=== PATIENT | male | born 1970 | race African-American/Black ===

== ENCOUNTER 2016-12-05 11:52 | Emergency (ER) | payer SELFPAY ==
[2016-12-05 12:05] VITALS: BP 139/76
[2016-12-05] MEDS ORDERED: Ondansetron TAB* 4 MG PO ONE (12:23)
[2016-12-05] MEDS ORDERED: Ondansetron ODT TAB* 4 MG PO ONE (12:27)
--- NOTE | 2016-12-05 12:39 | UC ---
UC General HPI - HPI Summary HPI Summary: 46 yo male presents to the urgent care c/o nausea, vomiting and diarrhea after he ate a hamburger with a pizza last night. Patient reports he has had 5 episodes of vomiting and 4X of watery diarrhea. This morning he developed headache with sensitivity to light, body aches, specially when he is lying down and mild fever. He has taking ibuprofen /tylenol which has improved symptoms. Last episode of vomiting was at 10:30pm. Patient denies SOB, chest pain, blood in the stool or emesis, travelling outside the country, sick contacts. - History of Current Complaint Chief Complaint: UCGeneralIllness Stated Complaint: BODY ACHES,VOMITTING,ONEIL Time Seen by Provider: 12/05/16 11:55 Hx Obtained From: Patient Onset/Duration: Sudden Onset - vomiting and diarrhea, Lasting Hours, Still Present Timing: Intermittent Episodes Lasting: Onset Severity: Moderate Current Severity: Moderate Pain Intensity: 4 Pain Location at: upper back when laying down due to vomiting Associated Signs & Symptoms: Positive: Abdominal Pain - mild epigastric, Diarrhea, Fever - mild, Headache - with sensitiviy to light, Nausea, Vomiting. Negative: Dizziness, Hematemesis - Allergy/Home Medications Allergies/Adverse Reactions: Allergies Allergy/AdvReac Type Severity Reaction Status Date / Time No Known Allergies Allergy Verified 12/05/16 11:57 PMH/Surg Hx/FS Hx/Imm Hx Neurological History: Migraine - Surgical History Surgical History: None - Family History Known Family History: Positive: Cardiac Disease, Diabetes, Other - liver cancer - Social History Occupation: Employed Full-time Lives: With Family Alcohol Use: None Substance Use Type: None Smoking Status (MU): Heavy Every Day Tobacco Smoker Type: Cigarettes Amount Used/How Often: 1/2 ppd - Immunization History Most Recent Influenza Vaccination: 2016 Most Recent Tetanus Shot: UTD Most Recent Pneumonia Vaccination: N/A Review of Systems Constitutional: Fever - mild Skin: Negative Eyes: Negative, Photophobia - due to migraine headache ENT: Negative Respiratory: Negative Cardiovascular: Negative Gastrointestinal: Abdominal Pain - eoigastric, Vomiting - 6 episodes bile like, Diarrhea - watery Genitourinary: Negative Motor: Negative Neurovascular: Negative Musculoskeletal: Negative Neurological: Headache Psychological: Negative All Other Systems Reviewed And Are Negative: Yes Physical Exam Triage Information Reviewed: Yes Appearance: Well-Appearing, No Pain Distress, Well-Nourished, Thin Vital Signs: Initial Vital Signs Temp 98.6 F 12/05/16 11:58 Pulse 69 12/05/16 11:58 Resp 18 12/05/16 11:58 BP 139/76 12/05/16 11:58 Pulse Ox 99 12/05/16 11:58 Vital Signs Reviewed: Yes Eye Exam: Normal Eyes: Positive: Conjunctiva Clear ENT Exam: Normal ENT: Positive: Normal ENT inspection, Hearing grossly normal, Pharynx normal, TMs normal. Negative: Nasal congestion, Nasal drainage Neck exam: Normal Neck: Positive: Supple, Nontender, No Lymphadenopathy Respiratory Exam: Normal Respiratory: Positive: Chest non-tender, Lungs clear, Normal breath sounds Cardiovascular Exam: Normal Cardiovascular: Positive: RRR, No Murmur, Pulses Normal Abdominal Exam: Normal Abdomen Description: Positive: No Organomegaly, Soft, Other: - mild epigatric pain on deep palpation,. Negative: CVA Tenderness (R), CVA Tenderness (L) Bowel Sounds: Positive: Present Musculoskeletal Exam: Normal Neurological Exam: Normal Psychological Exam: Normal Skin Exam: Normal Course/Dx - Course Course Of Treatment: Nausea, vomiting and diarrhea: Hx obtained, PE performed: Positive: No Organomegaly, Soft, Other: - mild epigatric pain on deep palpation, . Negative: CVA Tenderness (R), CVA Tenderness (L). Pt with Hx of Migraine headache and sensitivity to light. Patient given Zofran 4mg SL for vomitng, Pt tolerated well medication and left clinic ambulating. Medications sent to pharmacy. Pt instructed to increase hydration and eat soft meals and take medications to alleviate symptoms. Patient understood and agreed. - Differential Dx - Multi-Symptom Provider Diagnoses: Nausea, vomiting, diarrhea, Migraine Headache. Discharge - Discharge Plan Condition: Stable Disposition: HOME Prescriptions: Ibuprofen TAB* [Motrin TAB* 600 MG] 600 mg PO Q6H PRN #20 tab PRN Reason: Headache Ondansetron ODT TAB* [Zofran 4 MG Odt TAB*] 8 mg PO Q8H PRN #9 tab.odt PRN Reason: Vomiting Patient Education Materials: Acute Nausea and Vomiting (ED) Forms: *Work Release Referrals: [facility] [Outside] No Primary Care Phys,NOPCP [Primary Care Provider] - Additional Instructions: Please increase fluid intake to avoid dehydration either gatorade or Pedialyte OTC. Eat soft meals and rest. Take medications as directed to alleviate symptoms. If symptoms worsen please return to the urgent care or call Physicial referal to make and appt with a PCP for further evaluation and treatment
== END 2016-12-05 12:52 | disposition home or self-care (01) ==
LOC: UCCORT 11:52
DX: R11.2 Nausea with vomiting, unspecified (principal); R19.7 Diarrhea, unspecified; G43.909 Migraine, unspecified, not intractable, without status migrainosus; R10.13 Epigastric pain; F17.210 Nicotine dependence, cigarettes, uncomplicated
CPT/HCPCS: 99202; A9270-GY; G0463

== ENCOUNTER 2018-12-02 07:30 | Observation (INO) | payer OTHER ==
[2018-12-06] MEDS ORDERED: Buffered Lidocaine 1% SYRIN* 1 ML/SYRINGE INTRADERM ONE (11:31)
[2018-12-07] MEDS ORDERED: Sodium Citrate/Citric Acid* 15 ML UDC PO ONE (06:00)
[2018-12-07] MEDS ORDERED: Lactated Ringers 1000 ML Bag* 1,000 ML IV SCH ×2 (06:00→12:00)
--- OUTSIDE RECORDS SUMMARY | 2018-12-07 06:12 | XMS REPORT | Continuity of Care Document ---
:1970 External Reference #:[id number] Author Name Pepper Hsu Care Team Providers Name Role Phone Ne Kearns PA Care Team Information Geospatial Imagery Intelligence Analyst Unavailable Ne Kearns PA Primary Care Physician Unavailable Payers Date Identification Numbers Payment Provider Subscriber Effective: 2018 Policy Number: [id number] [employer] Suresh Gonzalez PayID: [id number] [address] [place] [address] Problems Active Problems Provider Date Tobacco user Chinmay Davenport M.D., Onset: 11/17/2018 [facility] Preoperative cardiovascular Chinmay Davenport M.D., Onset: 11/17/2018 examination FAC Family History Date Family Member(s) Observation Comments : (age 46 Years) Father due to CAD Mother Cancer Mother Diabetes Mother enlarged heart Social History Type Date Description Comments Sex Unknown Lives With Significant Other Diet Patient follows no dietary restrictions 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 Independent with all ADL's Tobacco Use Start: Unknown Currently smokes 1-5 Cigarettes Daily Smoking Status Reviewed: 11/17/18 Currently smokes 1-5 Cigarettes Daily ETOH Use Occasionally consumes alcohol Allergies, Adverse Reactions, Alerts Description No Known Drug Allergies Medications Active Medications SIG Qnty Indications Ordering Provider Date Gabapentin take one tablet Unknown 600mg Tablets by mouth three times a day prn History Medications No Active Medications Unknown 03/25/2018 - 11/17/2018 Vital Signs Date Vital Result Comment 11/17/2018 2:02pm BP Systolic Sitting Left Arm 148 mmHg BP Diastolic Sitting Left Arm 90 mmHg Heart Rate 55 /min Respiratory Rate 18 /min Weight 191.00 lb Results Test Date Facility Test Result H/L Range Note Monocytes/leuk NFr N2N/CCD Import Monocytes/leuk NFr 7.1 0.0- 10.0 Bld Auto 018 Bld Auto Neutrophils # Bld N2N/CCD Import Neutrophils # Bld 2.66 1.8-7.0 Auto 018 Auto Neutrophils/leuk N2N/CCD Import Neutrophils/leuk 38.6 33.0-73. NFr Bld Auto 018 NFr Bld Auto 0 Potassium N2N/CCD Import Potassium 3.9 3.5-5.1 SerPl-sCnc 018 SerPl-sCnc RDW RBC Auto N2N/CCD Import RDW RBC Auto 43.3 36-51 018 RDW RBC Auto-Rto N2N/CCD Import RDW RBC Auto-Rto 12.8 11.6-15. 018 8 Serum carbon N2N/CCD Import Serum carbon 26 21-32 dioxide measurement 018 dioxide measurement Serum or plasma N2N/CCD Import Serum or plasma 8.3 Low 8.5-10.1 calcium measurement 018 calcium measurement (mass/volume) (mass/volume) Serum or plasma N2N/CCD Import Serum or plasma 239 39-308 creatine kinase 018 creatine kinase measurement (enzym measurement (enzymatic activity/volume) Serum or plasma N2N/CCD Import Serum or plasma 0.8 0.6-1.3 creatinine 018 creatinine measurement measurement (mass/volum (mass/volume) Serum or plasma N2N/CCD Import Serum or plasma 115 High 74-106 glucose measurement 018 glucose measurement (mass/volume) (mass/volume) Serum or plasma N2N/CCD Import Serum or plasma 1.8 1.8-2.4 magnesium 018 magnesium measurement measurement (mass/volume (mass/volume) Serum or plasma N2N/CCD Import Serum or plasma 8 7-18 urea nitrogen 018 urea nitrogen measurement measurement (mass/vo (mass/volume) Serum or plasma N2N/CCD Import Serum or plasma 10.0 urea 018 urea nitrogen/creatinine nitrogen/creatinine mass rati mass ratio Serum sodium N2N/CCD Import Serum sodium 141 136-145 measurement 018 measurement Automated blood N2N/CCD Import Automated blood 0.01 0.0-0.1 basophil count 018 basophil count (count/volume) (count/volume) Anion Gap N2N/CCD Import Anion Gap 8 8-16 SerPl-sCnc 018 SerPl-sCnc * Miscellaneous N2N/CCD Import * Miscellaneous Test(s) studies (set) 018 studies (set) added Automated blood N2N/CCD Import Automated blood 0.28 0.0-0.5 eosinophil count 018 eosinophil count Automated blood N2N/CCD Import Automated blood 41.4 # 38.0-48. hematocrit (volume 018 hematocrit (volume 0 fraction) fraction) Automated blood N2N/CCD Import Automated blood 3.46 1.0-4.0 lymphocyte count 018 lymphocyte count (number/volume) (number/volume) Automated blood N2N/CCD Import Automated blood 160 155-360 platelet count 018 platelet count Automated blood N2N/CCD Import Automated blood 10.2 6.6-10.6 platelet mean 018 platelet mean volume measurement volume measurement Automated N2N/CCD Import Automated 33.2 High 27.0-33. erythrocyte mean 018 erythrocyte mean 0 corpuscular corpuscular hemoglobin hemoglobin (mass per erythrocyte) Lymphocytes/leuk N2N/CCD Import Lymphocytes/leuk 50.1 High 20.0- 42. NFr Bld Auto 018 NFr Bld Auto 0 Eosinophil/leuk NFr N2N/CCD Import Eosinophil/leuk NFr 4.1 0.0- 6.6 Bld Auto 018 Bld Auto Chloride SerPl-sCnc N2N/CCD Import Chloride SerPl-sCnc 107 98- 107 018 Blood monocytes N2N/CCD Import Blood monocytes 0.49 0.0-0.8 automated count 018 automated count (number/volume) (number/volume) Blood leukocytes N2N/CCD Import Blood leukocytes 6.9 3.4-10.5 automated count 018 automated count (number/volume) (number/volume) Blood hemoglobin N2N/CCD Import Blood hemoglobin 14.5 12.8-17. measurement 018 measurement 0 (mass/volume) (mass/volume) Blood erythrocytes N2N/CCD Import Blood erythrocytes 4.37 4.20- 5.8 automated count 018 automated count 0 (number/volume) (number/volume) Basophils/leuk NFr N2N/CCD Import Basophils/leuk NFr 0.1 0.0- 1.1 Bld Auto 018 Bld Auto Automated N2N/CCD Import Automated 94.7 80.0-96. erythrocyte mean 018 erythrocyte mean 0 corpuscular volume corpuscular volume Automated N2N/CCD Import Automated 35.0 31.7-36. erythrocyte mean 018 erythrocyte mean 0 corpuscular corpuscular hemoglobin hemoglobin concentration measurement (mass/volume) Serum or plasma N2N/CCD Import Serum or plasma 0.9 0.2-1.0 total bilirubin 018 total bilirubin measurement (mass/ measurement (mass/volume) Serum or plasma N2N/CCD Import Serum or plasma 8.4 High 6.4-8.2 protein measurement 018 protein measurement (mass/volume) (mass/volume) Serum or plasma N2N/CCD Import Serum or plasma 48 High 15-37 aspartate 018 aspartate aminotransferase aminotransferase measure measurement (enzymatic activity/volume) Serum or plasma N2N/CCD Import Serum or plasma 87 45-117 alkaline 018 alkaline phosphatase phosphatase measurement ( measurement (enzymatic activity/volume) Serum or plasma N2N/CCD Import Serum or plasma 4.1 3.4-5.0 albumin measurement 018 albumin measurement (mass/volume) (mass/volume) Globulin Ser N2N/CCD Import Globulin Ser 4.3 1.9-4.3 Calc-mCnc 018 Calc-mCnc Albumin/Glob SerPl N2N/CCD Import Albumin/Glob SerPl 1.0 018 Alt SerPl-cCnc N2N/CCD Import Alt SerPl-cCnc 43 12-78 018 Urine opiates N2N/CCD Import Urine opiates Negative detection by 018 detection by screening method screening method Urine methadone N2N/CCD Import Urine methadone Negative screen 018 screen Urine drug screen N2N/CCD Import Urine drug screen * comment 018 comment interpretation interpretation Urine cannabinoids N2N/CCD Import Urine cannabinoids Positive High detection by 018 detection by screening method screening method Urine N2N/CCD Import Urine Negative benzoylecgonine 018 benzoylecgonine detection by detection by screening metho screening method Urine N2N/CCD Import Urine Negative benzodiazepines 018 benzodiazepines measurement by measurement by screening met screening method (mass/volume) Urine amphetamines N2N/CCD Import Urine amphetamines Negative detection by 018 detection by screening method screening method Screening urine N2N/CCD Import Screening urine Negative barbiturate 018 barbiturate detection detection Procedures Date Code Description Status 11/17/2018 56823 EKG-Tracing And Report Completed 05/07/2018 91247 [facility] [employer] Performance Continuous Completed Electrocardio Mon Encounters Type Date Location Provider Dx Diagnosis Office Visit 11/17/2018 Cardiology Office [facility] Z01.810 Encounter for 2:00p Chinmay Parker M.D., preprocedural [facility] cardiovascular examination F17.210 Nicotine dependence, cigarettes, uncomplicated Plan of Treatment 11/17/2018 - Chinmay Davenport M.D., FACCZ01.810 Encounter for preprocedural cardiovascular examinationComments:The patient is cleared for surgery without further study.F17.210 Nicotine dependence, cigarettes, uncomplicatedComments: Counseled patient on smoking cessation for more than 3 min.AllFollow up:Follow up with us on a PRN basis.
--- OUTSIDE RECORDS SUMMARY | 2018-12-07 06:13 | XMS REPORT | Continuity of Care Document ---
:1970 External Reference #:[id number] Author Name Pepper Hsu Care Team Providers Name Role Phone Ne Kearns PA Care Team Information Cutter Operator Tile Unavailable Ne Kearns PA Primary Care Physician Unavailable Payers Date Identification Numbers Payment Provider Subscriber Effective: 2018 Policy Number: [id number] [employer] Suresh Gonzalez PayID: [id number] [address] [place] [address] Problems Active Problems Provider Date Tobacco user Chinmay Davenport M.D., Onset: 11/17/2018 [facility] Preoperative cardiovascular Chinmay Davenport M.D., Onset: 11/17/2018 examination FAC Family History Date Family Member(s) Observation Comments : (age 46 Years) Father due to CAD Mother Cancer Mother Diabetes Mother enlarged heart Social History Type Date Description Comments Sex Unknown Lives With Significant Other Diet Patient follows no dietary restrictions 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 NFr Bld Auto 018 NFr Bld Auto 0 Monocytes/leuk NFr N2N/CCD Import Monocytes/leuk NFr 7.1 [...] Serum sodium 141 136-145 measurement 018 measurement Anion Gap N2N/CCD Import Anion Gap 8 8-16 SerPl-sCnc 018 SerPl-sCnc * Miscellaneous N2N/CCD Import * Miscellaneous Test(s) studies (set) 018 studies (set) added Automated blood N2N/CCD Import Automated blood 0.01 0.0-0.1 basophil count 018 basophil count (count/volume) (count/volume) Automated blood N2N/CCD Import Automated blood 0.28 [...] corpuscular corpuscular hemoglobin hemoglobin (mass per erythrocyte) Eosinophil/leuk NFr N2N/CCD Import Eosinophil/leuk NFr 4.1 [...] detection Procedures Date Code Description Status 11/17/2018 66733 EKG-Tracing And Report Completed 05/07/2018 78890 [facility] Performance Continuous Completed Electrocardio Mon Encounters Type Date Location Provider Dx Diagnosis Office Visit 11/17/2018 Cardiology Office [facility] Z01.810 Encounter for 2:00p Chinmay Parker M.D., preprocedural [facility] cardiovascular examination F17.210 Nicotine dependence, cigarettes, uncomplicated Plan of Treatment 11/17/2018 - Chinmay Davenport M.D., FACCZ01.810 Encounter for preprocedural cardiovascular examinationComments:The patient is cleared for surgery without further study.F17.210 Nicotine dependence, cigarettes, uncomplicatedComments: Counseled patient on smoking cessation for more than 3 min.AllFollow up:Follow up with us on a PRN basis.
--- OUTSIDE RECORDS SUMMARY | 2018-12-07 06:13 | XMS REPORT | Continuity of Care Document ---
:1970 External Reference #:[id number] Author Name Chinmay Davenport M.D., [facility] Address [address] [place] [address] Care Team Providers Name Role Phone Ne Kearns PA Care Team Information Parole Supervisor Unavailable Ne Kearns PA Primary Care Physician Unavailable Payers Date Identification Numbers Payment Provider Subscriber Effective: 2018 Policy Number: [id number] [employer] Suresh Gonzalez PayID: [id number] [address] [place] [address] Problems Active Problems Provider Date Tobacco user Chinmay Davenport M.D., Onset: 11/17/2018 [facility] Preoperative cardiovascular Chinmay Davenport M.D., Onset: 11/17/2018 examination [facility] Family History Date Family Member(s) Observation Comments : (age 46 Years) Father due to CAD Mother Cancer Mother Diabetes Mother enlarged heart Social History Type Date Description Comments Sex Unknown Lives With Significant Other Diet Patient follows no dietary restrictions 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 with all ADL's Tobacco Use [...] Serum sodium 141 136-145 measurement 018 measurement * Miscellaneous N2N/CCD Import * Miscellaneous Test(s) studies (set) 018 studies (set) added Anion Gap N2N/CCD Import Anion Gap 8 8-16 SerPl-sCnc 018 SerPl-sCnc Automated blood N2N/CCD Import Automated blood 0.01 [...] detection Procedures Date Code Description Status 11/17/2018 58276 EKG-Tracing And Report Completed 05/07/2018 32781 [facility] [employer] Performance Continuous Completed Electrocardio Mon Encounters Type Date Location Provider Dx Diagnosis Office Visit 11/17/2018 Cardiology Office [facility] Z01.810 Encounter for 2:00p Chinmay Parker M.D., preprocedural [facility] cardiovascular examination F17.210 Nicotine dependence, cigarettes, uncomplicated Plan of Treatment 11/17/2018 - Chinmay Davenport M.D., FACCZ01.810 Encounter for preprocedural cardiovascular examinationComments:The patient is cleared for surgery without further study.F17.210 Nicotine dependence, cigarettes, uncomplicatedComments: Counseled patient on smoking cessation for more than 3 min.AllFollow up:Follow up with us on a PRN basis.
[2018-12-07] MEDS ORDERED: Sodium Citrate/Citric Acid* 15 ML UDC ONE (06:38)
[2018-12-07] MEDS ORDERED: ceFAZolin 2 GM PREMIX in ORs 2 GM/50 ML BAG ONE ×2 (06:38→11:18)
[2018-12-07] MEDS ORDERED: Buffered Lidocaine 1% SYRIN* 1 ML/SYRINGE INTRADERM ONE (06:38)
[2018-12-07] MEDS ORDERED: Thrombin 5,000 UNITS* 1 APPLIC KIT - topical use - TOPICAL ONE (07:05)
[2018-12-07] MEDS ORDERED: Lidocaine 1% MPF wEPI 200,000* 30 ML SDV ONE (07:05)
[2018-12-07] MEDS ORDERED: Bacitracin INJECTION* 50,000 UNITS ONE (07:05)
[2018-12-07] MEDS ORDERED: fentaNYL* 50 MCG/ML 5 ML VIAL (250 MCG VIAL) ONE (07:13)
[2018-12-07] MEDS ORDERED: Succinylcholine* 20 MG/ML 10 ML VIAL ONE (07:14)
[2018-12-07] MEDS ORDERED: Propofol* 10 MG/ML 20 ML BTL ONE (07:14)
[2018-12-07] MEDS ORDERED: Lidocaine 2% PF * 5 ML VIAL ONE (07:14)
[2018-12-07] MEDS ORDERED: Midazolam* 1 MG/ML 2 ML VIAL (2 MG) ONE (07:33)
[2018-12-07] MEDS ORDERED: Remifentanil* 2 MG VIAL ONE (07:56)
[2018-12-07] MEDS ORDERED: Dexamethasone IV* 4 MG/ML 1 ML (4 MG) ONE (08:32)
[2018-12-07] MEDS ORDERED: Propofol* 0 MG/0 ML BTL ONE (08:37)
[2018-12-07] MEDS ORDERED: Desflurane* 240 ML INH ONE (08:49)
[2018-12-07] MEDS ORDERED: Propofol* 500 MG/50 ML BTL ONE ×2 (08:49→09:25)
[2018-12-07] MEDS ORDERED: Rocuronium* 10 MG/ML VIAL ONE (09:10)
[2018-12-07] MEDS ORDERED: Propofol* 0 ML ONE (09:25)
[2018-12-07] MEDS ORDERED: Propofol* 200 ML ONE (10:42)
[2018-12-07] MEDS ORDERED: Neostigmine Methylsulfate* 3 MG/3 ML SYRINGE ONE (11:15)
[2018-12-07] MEDS ORDERED: Magnesium Hydroxide LIQ* 30 ML UDC PO PRN (11:54)
[2018-12-07] MEDS ORDERED: Ondansetron INJ* 2 MG/ML VIAL IV PRN (11:54)
[2018-12-07] MEDS ORDERED: Zolpidem TAB* 10 MG PO PRN (11:54)
[2018-12-07] MEDS ORDERED: Naloxone* 0.4 MG/ML 1 ML VIAL IV PRN (12:04)
[2018-12-07] MEDS: fentaNYL* 50 MCG/ML 2 ML VIAL (100 MCG VIAL) IV PRN ×4 (12:21→12:28)
[2018-12-07] MEDS ORDERED: fentaNYL* 50 MCG/ML 2 ML VIAL (100 MCG VIAL) ONE ×2 (12:21→13:05)
[2018-12-07] MEDS ORDERED: oxyCODONE/Acetamin 5/325 MG* TAB ONE (13:05)
--- NOTE | 2018-12-07 13:45 | OP ---
DATE OF OPERATION: 12/07/18 - ROOM #347 DATE OF : 72 SURGEON: Garland Quinn MD [employer] SEALER AND TESTER: Preet Mcneill, Surgical PA. The case was done with the assistance of the PA because of the complexity of the case. ANESTHESIA: General. PRE-OP DIAGNOSIS: Degenerative disk disease. POST-OP DIAGNOSIS: Degenerative disk disease. OPERATIVE PROCEDURE: The patient underwent anterior cervical diskectomy and fusion C5-C6 and C6-C7 with PEEK interbody cage, DBX local harvested autologous bone graft and plate with intraoperative monitoring. ESTIMATED BLOOD LOSS: 200 cc. COMPLICATIONS: None. SUMMARY: The patient is a very pleasant 48-year-old gentleman with complaints of neck pain radiating to the right upper extremity. The patient had significant weakness and loss of sensation in the right upper extremity. MRI revealed degenerative disk disease with multilevel right neuroforaminal stenosis and diagnosis of radiculopathy was confirmed with EMG. After failing all conservative modalities, he was offered the option of surgical intervention. After explaining the expectations, limitations, and possible complications to the patient and his significant other with complications including but not limited to bleeding, infection, risk of injury to adjacent structures, paralysis, , need for additional procedure, anesthesia risk, stroke, blindness, cancer, instability, hardware failure, adjacent level disease , pseudoarthrosis, spinal fluid leak, Rebekah syndrome, need for tracheostomy or gastrostomy, anesthesia risk, paralysis, progressive myelopathy, inability to improve, need for prolonged hospitalization, prolonged ICU stay, and anesthesia risk; the patient was agreeable to proceed with surgery and informed consent was obtained. The patient understood that his condition may not improve and in fact may get worse after surgery and that he may need to have additional procedure in the future. He also understood that operative plan may be modified according to intraoperative findings and conditions and he understood that the case may be abandoned or done in more than 1 stage. DESCRIPTION OF PROCEDURE: The patient was brought to the operating room, was placed under general anesthesia by the anesthesia team. He was carefully positioned supine on the Evin table and all bony prominences were meticulously padded. His skin was prepped and draped in the standard fashion. After appropriate surgical pause and patient identification, a small right transverse incision was marked in the skin at the level of C5-6 approximately with the use of intraoperative fluoroscopic imaging. After appropriate surgical pause and patient identification, the skin was infiltrated with local anesthetic and a #10 surgical blade was used to incise the skin. The incision was carried down through the subcutaneous tissue and the skin was gently undermined. The platysma was then gently elevated and divided with sharp dissection and then tenotomy scissors was used to undermine the platysma. Self- retaining retractor was introduced further into the field and the plane between the medial borders of sternocleidomastoid and the medial structures were gently developed with sharp and blunt dissection. The prevertebral fascia was identified; and, after dividing the fascia, the anterior part of the spinal cord was readily seen. Fluoroscopic intraoperative imaging confirmed appropriate surgical level and a Hazelwood pin was placed at the vertebral bodies of C5, C6, and C7. Self-retaining retractors were placed into the field and after incising the annulus fibrosis with a #15 surgical blade, standard diskectomies were performed at the C5-6 level first. The diskectomy was carried out with the use of Kerrison rongeurs, Kerrison punches, curettes, and high-speed drill. The intraoperative microscope was brought into the field and diskectomy was occluded under microscopic magnification. The posterior longitudinal ligament was then gently divided and extensive foraminotomies bilaterally were performed. After appropriate sizing of the intervertebral disk space, an 8-mm height PEEK interbody cage filled with locally harvested bone graft during the diskectomy and DBX was inserted at the C5-6 level. The C5 Reuben pin was then gently removed and after repositioning of the retractors , the procedure was performed for the C6-7 level. During the positioning of self -retaining retractors, every time the Apfelbaum maneuver was performed. After completion of the diskectomy in both levels, the thecal sac was found to be free of any pressure phenomenon as well as the foramina found to be extremely patent. After confirmation of meticulous hemostasis and copious irrigation and meticulous inspection, a second cage was inserted with 9-mm height. Also, meticulous confirmation was confirmed prior to inserting the first cage also. The Reuben pins were then gently removed and a two-level Zevo titanium plate from [employer] was introduced into the field and secured in place with screws. Fluoroscopic intraoperative imaging confirmed excellent placement of all hardware. The self-retaining retractors were gently removed and after confirmation of meticulous hemostasis, copious irrigation, and meticulous inspection, the wound was closed by layers after placing a Kristofer drain through a separate stab-wound incision. The wound was closed by layers with 2-0 intraoperative Vicryl sutures to approximate the platysma, 2-0 interrupted intraoperative Vicryl sutures to approximate subcutaneous tissue, and Dermabond was used to cover the skin. At the end of the procedure, all counts were reported to be correct. The patient remained hemodynamically stable throughout the case and intraoperative electrophysiological monitoring was stable throughout the case. The patient was then extubated and transferred to Recovery in excellent condition. [id number]/CPS #: [id number] AMBROSE
[2018-12-07] MEDS: HYDROmorphone TAB* 2 MG PO PRN (14:39)
[2018-12-07] MEDS: oxyCODONE/Acetamin 5/325 MG* TAB PO PRN ×2 (17:37→21:48)
[2018-12-08] MEDS: HYDROmorphone TAB* 2 MG PO PRN (01:24)
[2018-12-08] MEDS: oxyCODONE/Acetamin 5/325 MG* TAB PO PRN ×2 (06:31→11:17)
--- NOTE | 2018-12-08 09:20 | PN ---
Progress Note - Progress Note Date of Service: 12/08/18 Note: 48 y/o male s/p ACDF At C5/C6, C6/C7 POD # 1, Patient has been doing well during observation period. He has been able to tolerate liquids and food by mouth. His pain has been well controlled and vitals have been stable. Patient has been able to void and reports having bowel movement His PRESTON drain has put 30 ml overnight, he indicates that sensation is starting to return in his middle finger, but still has not return in the index or the thumb. Patient still feels as strength has not completely returned. Objective: Vital Signs - 8 hr 12/08/18 12/08/18 12/08/18 01:24 02:26 03:40 Temperature 98.2 F Pulse Rate 57 Respiratory 16 18 Rate Blood Pressure 140/74 (mmHg) O2 Sat by Pulse 97 97 Oximetry 12/08/18 12/08/18 12/08/18 06:31 07:27 07:59 Temperature 98 F Pulse Rate 70 Respiratory 20 16 18 Rate Blood Pressure 145/88 (mmHg) O2 Sat by Pulse 99 Oximetry 12/08/18 09:04 Temperature Pulse Rate Respiratory 18 Rate Blood Pressure (mmHg) O2 Sat by Pulse Oximetry Physical exam: General: Patient sitting up in bed comfortable eating ice cream, NAD Neuro: A&O X3, GCS 15, CN II - XII, decreased sensation on right hand of thumb and index finger. decreased lead refiner strength on the right 4/5 compared with left. DTR 2+/4 in all extremities. Derm: C/D/I, drain intact Assessment 48 y/o male post ACDF at C5/C6, C6/C7, recovering appropriately, patient is stable and pleased with the outcome of surgery and feels he is ready to go home. Plan: 1) Pain management as needed 2) Walk with PT/OT 3) discontinue drain discharge planning
[2018-12-08 11:18] VITALS: BP 158/79
== END 2018-12-08 11:50 | disposition home or self-care (01) ==
LOC: AA 12-07 06:09 → INTOOBSV 12-07 06:09 → SSU 12-07 11:54 → UNDODISIN 12-08 11:51
PROVIDERS: ADMIT Neurological Surgery; ATTEND Neurological Surgery
DX: M50.322 Other cervical disc degeneration at C5-C6 level (principal); M50.323 Other cervical disc degeneration at C6-C7 level; M54.2 Cervicalgia; Z87.891 Personal history of nicotine dependence
CPT/HCPCS: 72040; 76000; 96374; A9270-GY; C1713; C1776; C9359; G0378; J0330; J0690; J1100; J2001; J2250; J2704; J2710; J3010

== ENCOUNTER 2019-08-19 19:23 | Emergency (ER) | payer OTHER ==
[2019-08-19 19:48] VITALS: BP 131/71
[2019-08-19] MEDS ORDERED: HYDROcodone/ACETAMIN 5-325 MG* 1 TAB PO ONE (20:06)
--- NOTE | 2019-08-19 20:08 | UC ---
Skin Complaint HPI - HPI Summary HPI Summary: 48 yo male with onset this AM of painful swelling chin His girl friend squeezed his chin and the swollen area drained a lot of pus no f/c no hx of skin infections - History of Current Complaint Chief Complaint: UCSkin Time Seen by Provider: 08/19/19 19:54 Stated Complaint: SWOLLEN JAW Hx Obtained From: Patient Onset/Duration: Gradual Onset, Lasting Hours Timing: Constant Onset Severity: Severe Current Severity: Moderate Pain Intensity: 8 Pain Scale Used: 0-10 Numeric Location: Discrete Character: Swelling, Pain, Redness, Raised, Painful Aggravating Factor(s): Touch Associated Signs & Symptoms: Positive: Drainage, Tenderness - Allergy/Home Medications Allergies/Adverse Reactions: Allergies Allergy/AdvReac Type Severity Reaction Status Date / Time environmental Allergy Unknown Uncoded 08/19/19 19:39 Reaction Details PMH/Surg Hx/FS Hx/Imm Hx Previously Healthy: Yes - chronic neck pain and swelling - Surgical History Surgical History: Yes Surgery Procedure, Year, and Place: C-SPINE CAGE - Family History Known Family History: Positive: Cardiac Disease, Diabetes, Other - liver cancer - Social History Alcohol Use: Occasionally Substance Use Type: None Smoking Status (MU): Current Every Day Smoker Type: Cigarettes Amount Used/How Often: 1/2 ppd Length of Time of Smoking/Using Tobacco: 37 yrs Have You Smoked in the Last Year: Yes When Did the Patient Quit Smoking/Using Tobacco: CUTTING BACK IN PREP FOR SURGERY - Immunization History Most Recent Influenza Vaccination: 2015 Most Recent Tetanus Shot: UTD Most Recent Pneumonia Vaccination: N/A Review of Systems All Other Systems Reviewed And Are Negative: Yes Constitutional: Positive: Negative Skin: Positive: Negative Eyes: Positive: Negative ENT: Positive: Negative Respiratory: Positive: Negative Cardiovascular: Positive: Negative Gastrointestinal: Positive: Negative Genitourinary: Positive: Negative Motor: Positive: Negative Neurovascular: Positive: Negative Musculoskeletal: Positive: Negative Neurological/Mental Status: Positive: Negative Psychological: Positive: Negative Physical Exam Triage Information Reviewed: Yes Appearance: Well-Appearing, No Pain Distress, Thin Vital Signs: Initial Vital Signs Temp 98.3 F 08/19/19 19:42 Pulse 57 08/19/19 19:42 Resp 20 08/19/19 19:42 BP 131/71 08/19/19 19:42 Pulse Ox 100 08/19/19 19:42 Vital Signs Reviewed: Yes Eyes: Positive: Conjunctiva Clear ENT: Positive: Hearing grossly normal, Uvula midline. Negative: Nasal congestion, Nasal drainage, Trismus, Muffled voice, Hoarse voice Dental Exam: Other - abysmal dentition/many absen teeth/plaque and gingival swelling Respiratory: Positive: Lungs clear, Normal breath sounds, No respiratory distress, No accessory muscle use Cardiovascular: Positive: RRR Neurological: Positive: Alert Psychological Exam: Normal Skin Exam: Other - see image Images Head: 1 - tender/indurated/culture obtained from area covered by eschar Course/Dx - Diagnoses Provider Diagnosis: Abscess of chin Discharge ED - Sign-Out/Discharge Documenting (check all that apply): Patient Departure All imaging exams completed and their final reports reviewed: No Studies - Discharge Plan Condition: Stable Disposition: HOME Prescriptions: DOXYcycline CAP(*) [DOXYcycline 100MG CAP(*)] 100 mg PO BID #20 cap Patient Education Materials: Abscess (ED) Referrals: Leonidas Kearns PA [Primary Care Provider] - 3 Days (I suggest you get rechecked early next week) Additional Instructions: frequent warm compresses don't squeeze I suggest you go to the ER for fever or worsening pain/swelling Recheck in 48 hours if not improved a culture is pending - Billing Disposition and Condition Condition: STABLE Disposition: Home
== END 2019-08-19 20:24 | disposition home or self-care (01) ==
LOC: UCCORT 19:23
DX: L02.01 Cutaneous abscess of face (principal); M54.2 Cervicalgia; G89.29 Other chronic pain; F17.210 Nicotine dependence, cigarettes, uncomplicated; Z91.09 Other allergy status, other than to drugs and biological substances
CPT/HCPCS: 87070; 87205; 99212; G0463